=== PATIENT | female | born 1965 | race Caucasian/White ===

== ENCOUNTER 2019-11-30 10:48 | Outpatient (CLI) | payer OTHER, SELFPAY ==
--- NOTE | ~2019-11-30 | XR_ITS ---
EXAMINATION: XR chest 2V 11/30/2019 11:04 INDICATION: Cough PROCEDURE: 2 view chest COMPARISON: 03/31/2016 FINDINGS: The lungs are clear. The cardiomediastinal silhouette is within normal limits. There are no pleural effusions. There is no pneumothorax suspected. IMPRESSION: 1: NO ACUTE CARDIOPULMONARY DISEASE. Reviewed, dictated and finalized at location A.
== END 2019-11-30 10:49 | disposition home or self-care (01) ==
PROVIDERS: PCP Family Medicine; Visit Provider Nurse Practitioner Family
DX: R05 Cough (principal)
CPT/HCPCS: 71046

== ENCOUNTER 2020-03-25 10:53 | Outpatient (NON) | payer OTHER, SELFPAY ==
[2020-03-25 22:34] LABS: SARS-CoV-2 RNA PCR Negative
== END 2020-03-25 10:54 ==
PROVIDERS: PCP Family Medicine; Visit Provider Nurse Practitioner Family
DX: R53.83 Other fatigue (principal); Z20.822 Contact with and (suspected) exposure to COVID-19
CPT/HCPCS: C9803; U0003; U0005

== ENCOUNTER → 2020-06-18 01:30 | Outpatient (CLI) | payer OTHER, SELFPAY ==
[2020-06-18 21:08] LABS: SARS-CoV-2 RNA PCR Negative
== END ==
PROVIDERS: PCP Family Medicine; Visit Provider Internal Medicine Critical Care Medicine
DX: Z01.812 Encounter for preprocedural laboratory examination (principal); Z20.822 Contact with and (suspected) exposure to COVID-19
CPT/HCPCS: C9803; U0003; U0005

== ENCOUNTER 2021-01-21 00:27 | Day surgery (SDC) | payer OTHER, SELFPAY ==
[2021-01-07 14:35] VITALS: BMI 21.6
[2021-01-21 09:32] VITALS: BP 104/59; PULSE 70; RESP 16; TEMP 35.6; O2SAT 100
[2021-01-21] MEDS: LACTATED RINGERS 1,000 ML 150 ML IV CONT (09:36)
--- NOTE | 2021-01-21 10:12 | WPDANESEPPF ---
Anes - Initial Pre Proc Eval Procedure: Operation Date: 01/21/21 11:00 Proposed Procedures p Esophagogastroduodenoscopy & Screening Colonoscopy - Salu Edward MD Date/Time: 01/21/21 10:12 Surgeon: Saul Edward MD Pre Op Diagnosis: nausea, epigastric pain, neoplasm screening Patient Data Age: 55 Gender: F Height: 1.65 m Weight: 58 kg Last Vital Signs Temp 35.6 C L 01/21/21 09:32 Pulse 70 01/21/21 09:32 Resp 16 01/21/21 09:32 BP 104/59 L 01/21/21 09:32 Pulse Ox 100 01/21/21 09:32 Allergies Allergy/AdvReac Type Severity Reaction Status Date / Time codeine Allergy Unknown Pruritic Verified 01/21/21 09:30 rash morphine Allergy Unknown Rash Verified 01/21/21 09:30 oxycodone Allergy Unknown Rash Verified 01/21/21 09:30 TOMATO JUICE/REDNESS Allergy Mild REDNESS Uncoded 01/21/21 09:30 Home Medications Medication Instructions Recorded Confirmed Type albuterol sulfate 90 mcg/actuation 1 inh INHALATION Q4H #8.5 gm 12/09/20 01/07/21 Rx aerosol inhaler azelastine 205.5 mcg (0.15 %) 2 spray INTRANASAL DAILY #30 ml 01/13/21 Rx nasal spray cholecalciferol (vitamin D3) 125 125 mcg PO DAILY #30 tablet 01/13/21 Rx mcg (5,000 unit) tablet dextroamphetamine-amphetamine 10 10 mg PO BID #60 tablet 01/13/21 Rx mg tablet hydroxyzine HCl 25 mg tablet 25 mg PO BID PRN #60 tablet 01/13/21 Rx lamotrigine 200 mg tablet,extended 200 mg PO DAILY #90 tablet 01/13/21 Rx release 24 hr levothyroxine 112 mcg tablet 112 mcg PO DAILY #60 tablet 01/13/21 Rx omeprazole 20 mg capsule,delayed 40 mg PO BID #60 cap 01/13/21 Rx release ondansetron HCl 4 mg tablet 4 mg PO Q6H PRN #30 tablet 01/13/21 Rx sertraline 100 mg tablet 200 mg PO DAILY #180 tablet 01/13/21 Rx sodium,potassium,mag sulfates 17.5 See Rx Instructions PO .COMPLEX 01/13/21 Rx gram-3.13 gram-1.6 gram oral soln #354 ml tapentadol 75 mg tablet 75 mg PO Q6H PRN #120 tablet 01/13/21 Rx Patient hx anesthesia problems: none Family hx anesthesia problems: none Results Review: All pre-operative results and documents have been reviewed as part of the pre-operative evaluation. [facility] Past Medical History Medical History Arthritis of elbow, right Colon cancer screening Depression with anxiety Insomnia Nausea Sleep disturbance Tremor Surgical History Surgical History History of gastric surgery Family History Family History Mother Family history of pancreatic cancer Father Family history of coronary artery disease Family history of diabetes mellitus in first degree relative Other Diabetes mellitus Family history of arthritis Family history of cardiovascular disease Family history of malignant neoplasm Family history of malignant neoplasm of cervix Hypertension Social History Social History Smoking packs per day: 1 Smoking cigarettes per day: 20.0 Smoking status: Current every day smoker Tobacco type: cigarettes Alcohol intake: never Alcohol use details: social Substance use: never Substance use type: does not use Living arrangements: with family Gender identity (if verbalized by the patient): Female Spiritual care concerns: No Anes - Eval Final PreProcedure Day of Procedure 01/21/21 10:12 Patient weight: normal Heart: regular rate and rhythm Lungs: clear to auscultation Airway: Mallampati scale class II Neurological: alert and oriented Last oral intake: >/= 8 hours ASA classification: III Emergent: no Anesthetic plan: proceed Anesthesia type and monitoring: general GIVS and standard monitoring Results Review: All pre-operative results and documents have been reviewed as part of the pre-operative evaluation. Informed Consent: The mary
--- NOTE | 2021-01-21 11:13 | WPDHPUPDATE1 ---
History and Physical Update Update Date/Time: 01/21/21 11:13 History and Physical has been reviewed, including an updated exam of the patient. There are NO changes in the patient's condition. Risks, benefits, and alternatives have been discussed and questions answered. Patient agrees to proceed with procedure.
[2021-01-21 11:51] VITALS: BP 101/60; PULSE 64; RESP 20; O2SAT 100
[2021-01-21 12:01] VITALS: BP 107/59; PULSE 65; RESP 20; O2SAT 100
[2021-01-21 12:11] VITALS: BP 103/59; PULSE 71; RESP 18; O2SAT 100
== END 2021-01-21 12:29 | disposition home or self-care (01) ==
PROVIDERS: PCP Family Medicine; Visit Provider Internal Medicine Gastroenterology
PROC: 0DJ08ZZ Inspection of Upper Intestinal Tract, Via Natural or Artificial Opening Endoscopic (ICD-10-PCS; CPT 43235; principal; 2021-01-21 11:00)
DX: Z12.11 Encounter for screening for malignant neoplasm of colon (principal); D12.8 Benign neoplasm of rectum; D12.2 Benign neoplasm of ascending colon; K63.5 Polyp of colon; K62.1 Rectal polyp; K29.50 Unspecified chronic gastritis without bleeding; K44.9 Diaphragmatic hernia without obstruction or gangrene; K57.10 Diverticulosis of small intestine without perforation or abscess without bleeding; Z98.84 Bariatric surgery status; F41.8 Other specified anxiety disorders; Z79.51 Long term (current) use of inhaled steroids; F17.210 Nicotine dependence, cigarettes, uncomplicated
CPT/HCPCS: 45385; 43239; 88305; J2704; J7120

== ENCOUNTER 2021-04-21 12:22 | Emergency (ER) | payer OTHER, SELFPAY ==
--- NOTE | 2021-04-21 12:23 | ED.URI ---
HPI - URI/Sore Throat General Chief Complaint: Upper Respiratory Infection Stated Complaint: sinus infection Time Seen by Provider: 04/21/21 12:23 Source: patient and RN notes reviewed History of Present Illness HPI Narrative: Patient is a 55-year-old female who presents the urgent care with complaints of a possible sinus infection associated with postnasal drainage, runny nose, congestion, cough. Patient states that started approximately 4 days ago. Patient has been COVID vaccinated and her Covid test was negative. Denies of any fevers, chills, nausea, vomiting, shortness of breath. No other acute complaints. No acute distress noted. Patient read the plan of care. Some parts of this dictation were generated by voice recognition software and may contain typographical and/or grammatical inaccuracies. Related Data Allergies Allergy/AdvReac Type Severity Reaction Status Date / Time codeine Allergy Unknown Pruritic Verified 04/21/21 12:40 rash morphine Allergy Unknown Rash Verified 04/21/21 12:40 oxycodone Allergy Unknown Rash Verified 04/21/21 12:40 TOMATO JUICE/REDNESS Allergy Mild REDNESS Uncoded 04/21/21 12:40 Review of Systems Review of Systems: CONSTITUTIONAL: Denies fever, chills, or sweats. EYES: Denies visual changes, redness, or discharge. ENT: R reports of congestion, rhinorrhea, sinus pressure and postnasal drainage with bilateral otalgia CARDIOVASCULAR: Denies chest pain, palpitations, or edema. RESPIRATORY: Reports a mild cough without dyspnea GASTROINTESTINAL: Denies abdominal pain, nausea, vomiting, or diarrhea. GENITOURINARY: Denies dysuria or hematuria. SKIN: Denies rash or itching. MUSCULOSKELETAL: Denies back pain, joint pain, or myalgia. NEUROLOGIC: Denies headache, numbness, or weakness. All other systems reviewed are negative, except as documented in HPI. [facility] Past Medical History Medical History Arthritis of elbow, right Colon cancer screening Depression with anxiety Insomnia Nausea Sleep disturbance Tremor Surgical History Surgical History History of gastric surgery Family History Family History Mother Family history of pancreatic cancer Father Family history of coronary artery disease Family history of diabetes mellitus in first degree relative Other Diabetes mellitus Family history of arthritis Family history of cardiovascular disease Family history of malignant neoplasm Family history of malignant neoplasm of cervix Hypertension Social History Social History Smoking packs per day: 1 Smoking cigarettes per day: 20.0 Smoking status: Current every day smoker Tobacco type: cigarettes Alcohol intake: never Alcohol use details: social Substance use: never Substance use type: does not use Gender identity (if verbalized by the patient): Female Spiritual care concerns: No Comments At the time of my signature, I reviewed and agree with the nursing past medical, surgical, social, and family history. There is no relevant family history pertinent to the patient complaint. Exam Narrative: GENERAL: This is a well-nourished, well-developed patient, in no apparent distress. HEAD: normocephalic, atraumatic. EYES: PERRL. Sclera clear/white. Vision is grossly intact. EARS: External ears normal, auditory canals clear and without drainage, mild fluid noted behind bilateral TMs without otitis. TMs normal without perforation. Hearing grossly intact. NOSE: External nose normal with no obvious nasal discharge, nares without redness, no rhinorrhea. THROAT: Mucous membranes moist, posterior pharynx clear. Clear postnasal drainage NECK: Neck supple CARDIOVASCULAR: Regular rate and rhythm without murmurs, gallops, or rubs. RESPIRATORY: Clear to auscultation. S
[2021-04-21 12:27] VITALS: BP 115/63; PULSE 76; RESP 16; TEMP 37.2; O2SAT 97
[2021-04-21 12:58] VITALS: BP 156/93; PULSE 96; RESP 16; TEMP 36.6; O2SAT 96
== END 2021-04-21 12:45 | disposition home or self-care (01) ==
PROVIDERS: Emergency Provider Nurse Practitioner Family; PCP Family Medicine
DX: J32.9 Chronic sinusitis, unspecified (principal); F17.210 Nicotine dependence, cigarettes, uncomplicated; M19.021 Primary osteoarthritis, right elbow; F41.9 Anxiety disorder, unspecified; F32.A Depression, unspecified
CPT/HCPCS: 99213; G0463

== ENCOUNTER 2022-08-20 09:41 | Outpatient (CLI) | payer OTHER, SELFPAY | END 2022-08-20 09:42 | disposition home or self-care (01) | LOC: ANHAUDIO 09:41 | PROVIDERS: PCP Family Medicine; Visit Provider Family Medicine | DX: H90.3 Sensorineural hearing loss, bilateral (principal) | CPT/HCPCS: 92557; 92567 ==

== ENCOUNTER → 2022-12-08 13:48 | Outpatient (CLI) | payer OTHER, SELFPAY ==
--- NOTE | ~2022-12-08 | XR_ITS ---
XR_[id number]_CR DATE: 12/08/2022 14:26 INDICATION: Pleural chest pain TECHNIQUE: PA and lateral chest. 3 views of right ribs and 3 views of left ribs. COMPARISON: 11/30/2019 PA and lateral chest FINDINGS: Normal heart size. Aortic arch calcification. No hilar or mediastinal enlargement. Mild bilateral hyperinflation. No pulmonary infiltrate or consolidation, pleural effusion or pulmonar y vascular congestion or pneumothorax. Diffuse osteopenia. Mildly displaced anterolateral right fourth rib fracture appears recent. No other fracture is detecte d. IMPRESSION: Anterolateral mildly displaced right fourth rib fracture Reviewed, dictated and finalized at Location A. Reviewed, dictated and finalized at location B.
== END ==
PROVIDERS: PCP Family Medicine; Visit Provider Nurse Practitioner Family
DX: R07.81 Pleurodynia (principal); S22.31XA Fracture of one rib, right side, initial encounter for closed fracture
CPT/HCPCS: 71111

== ENCOUNTER 2023-02-03 07:00 | Outpatient (RCR) | payer OTHER, SELFPAY | END 2023-02-03 23:59 | disposition home or self-care (01) | LOC: ANHAUDIO 07:00 | PROVIDERS: PCP Family Medicine; Visit Provider Family Medicine | DX: Z46.1 Encounter for fitting and adjustment of hearing aid (principal) | CPT/HCPCS: 99199; V5261; V5264 ==

== ENCOUNTER 2023-03-27 17:15 | Observation (INO) | payer OTHER, SELFPAY ==
[2023-03-27] VITALS (47 sets, daily range): BP systolic 94–120; BP diastolic 54–92; PULSE 65–91; RESP 15–27; TEMP 36.6; O2SAT 95–100
--- NOTE | ~2023-03-27 | XR_ITS ---
EXAMINATION: XR chest 1V portable Exam Date/Time: 03/27/2023 17:44 DOMESTIC TRAVEL CONSULTANT HISTORY: cp Comparison: 11/30/2019. RESULT: Lines, tubes, and devices: None. Lungs and pleura: Clear. Cardiomediastinal silhouette: Stable. Other: No acute osseous or upper abdominal finding. IMPRESSION: No acute cardiopulmonary process. Reviewed, dictated and finalized at location K. STIC TRAVEL CONSULTANT
--- NOTE | ~2023-03-27 | US_ITS ---
EXAMINATION: US carotid duplex BI DATE: 03/28/2023 11:54 INDICATION: Carotid bruit TECHNIQUE: Grayscale, color Doppler, and pulsed Doppler images of the cervical carotid arteries were obtained. The degree of vessel stenosis is placed in one of the following categories: normal, <50%, 5 0-69%, >=70% but less than near-occlusion, near-occlusion, or total occlusion. Note that percent sten osis relative to normal distal artery lumen diameter is indirectly measured from velocity measurement s as described by Noe, et al. Radiology 2003; 229:340-346. Notes: Normal: Peak systolic velocity <125 centimeters/sec and no plaque <50%. Peak systolic velocity <125 ( EDV <40; ICA/CCA PSV ratio <2.0; used these factors only a tandem lesions or low cardiac output or co ntralateral disease) 50-69 %: PSV 125-230 (EDV 40-100; ratio 2-4) >= 70% but less than near occlusion: PSV greater than 230 (EDV > 100; ratio> 4.0) Near Occlusion: PSV that is variable; markedly narrowed lumen Occlusion: Absent flow on color/spectral Doppler and no lumen on fair scale. COMPARISON: None. FINDINGS: RIGHT: The right common carotid artery (CCA) peak systolic velocity (PSV) is 92 cm/s. The right internal car otid artery (ICA) PSV is 92 cm/s. The right ICA end-diastolic velocity (EDV ) is 39 cm/s. The right I CA/CCA PSV ratio is 0.8. The external carotid artery (ECA) PSV is 108 cm/s. There is antegrade flow i n the right vertebral artery. LEFT: The left CCA PSV is 96 cm/s. The left ICA PSV is 83 cm/s. The left ICA EDV is 41 cm/s. The left ICA/C CA PSV ratio is 0.9. The ECA PSV is 60 cm/s. There is antegrade flow in the left vertebral artery. IMPRESSION: 1. Less than 50% stenosis in the right internal carotid artery by sonographic criteria. 2. Less than 50% stenosis in the left internal carotid artery by sonographic criteria. Reviewed, dictated and finalized at location B. ER SETUP OPERATOR IMPRESSION: 1. Less than 50% stenosis in the right internal carotid artery by sonographic ashish smith. 2. Less than 50% stenosis in the left internal carotid artery by sonographic pastor gerard.
--- NOTE | 2023-03-27 17:28 | ECG_ITS ---
Measurements Intervals [place] Rate: 64 P: 52 OR: 147 QRS: 12 QRSD: 82 T: 48 QT: 398 QTc: 413 Interpretive Statements SINUS RHYTHM NORMAL ECG NO PREVIOUS ECG AVAILABLE FOR COMPARISON Electronically Signed On 03-27-2023 21:20:26 ANODE ADJUSTER by Stevenson Kam D.O.
[2023-03-27 17:58] LABS: Basophils Percent Auto 0.6 % (0.2-1.2); Eosinophils Absolute Auto 0.1 K/mm3 (0-0.3); Eosinophils Percent Auto 1.3 % (0-4.4); Hemoglobin 10.7 g/dL (12.0-15.0); Lymphocytes Absolute Auto 1.78 K/mm3 (0.9-3.2); Lymphocytes Percent Auto 32.9 % (18.3-44.2); Mean Corpuscular HGB Conc 31.5 g/dl (32-36); Mean Corpuscular Hemoglobin 30.7 pg (26-34); Mean Corpuscular Volume 97.4 fl (80-100); Mean Platelet Volume 9.2 fl (7.4-10.4); Monocytes Absolute Auto 0.4 K/mm3 (0.1-0.6); Monocytes Percent Auto 8.1 % (2.6-8.5); Neutrophils Absolute Auto 3.1 K/mm3 (1.3-6.7); Neutrophils Percent Auto 57.1 % (45.5-73.1); Platelet Count Result 191 k/mm3 (150-375); Red Blood Count 3.49 M/mm3 (4.2-5.4); Red Cell Distribution Width 14.6 % (11.5-14.5); White Blood Count 5.4 K/mm3 (4.5-10.0)
[2023-03-27 18:02] LABS: Alanine Aminotransferase 10 U/L (6-35); Albumin Level 3.6 g/dL (3.5-5.1); Alkaline Phosphatase 91 U/L (38-126); Anion Gap 4 mmol/L (8-16); Aspartate Amino Transferase 24 U/L (14-36); Bilirubin,Total 0.4 mg/dL (0.2-1.3); Blood Urea Nitrogen 11 mg/dL (7-17); Calcium 8.4 mg/dL (8.4-10.2); Carbon Dioxide 27 mmol/L (22-30); Chloride 107 mmol/L (98-107); Estimated CRCL calculation 61 ml/min; Estimated Glomerular Filt Rate > 60; Glucose 85 mg/dL (65-110); Lipase 83 U/L (23-300); Potassium 3.9 mmol/L (3.4-5.0); Sodium 138 mmol/L (137-145)
[2023-03-27 18:03] LABS: Partial Thromboplastin Time 27.2 SECONDS (22.3-36.8); Prothrombin Time 13.1 Seconds (11.1-14.7)
[2023-03-27 18:42] LABS: Troponin I < 0.012 ng/mL (0.000-0.034)
--- NOTE | 2023-03-27 18:50 | ED.CHESTPAIN ---
HPI - Chest Pain General Chief Complaint: Chest Pain Stated Complaint: chest pressure Time Seen by Provider: 03/27/23 17:30 History of Present Illness HPI narrative: 57-year-old female with a history of COPD, Ongoing tobacco use, hypothyroidism presenting with chest pain. Patient states that she was experiencing epigastric pain associated with nausea earlier this morning. She then developed severe left-sided chest pressure that radiated into her left shoulder. She became diaphoretic and nauseated so her called EMS. EMS gave her nitro which improved the pain though it did leave her with a headache. States that she has a chronic cough please add speech. No leg swelling. No numbness or weakness. Currently complains of mild substernal pressure but no other complaints. Related Data Home Medications Medication Instructions Recorded Confirmed brexpiprazole 0.5 mg tablet 0.5 mg PO HS 12/24/22 03/28/23 (Rexulti) duloxetine 60 mg capsule,delayed 60 mg PO DAILY 12/24/22 03/28/23 release valacyclovir 1 gram tablet 2,000 mg PO Q12H PRN cold sores 03/27/23 03/28/23 albuterol sulfate 90 mcg/actuation 1 inh inhalation Q4H PRN Shortness 03/28/23 03/27/23 aerosol inhaler (ProAir HFA) Of Breath Or Wheezing bupropion HCl 100 mg tablet 100 mg PO BID 03/28/23 03/28/23 ropinirole 0.5 mg tablet 0.5 mg PO QHS PRN .restless leg 03/28/23 03/28/23 symptoms Allergies Allergy/AdvReac Type Severity Reaction Status Date / Time codeine Allergy Unknown Dyspnea / Verified 03/28/23 04:12 SOB morphine Allergy Unknown Dyspnea / Verified 03/28/23 04:12 SOB oxycodone Allergy Unknown Rash Verified 03/28/23 04:12 TOMATO JUICE/REDNESS Allergy Mild REDNESS Uncoded 03/28/23 04:12 Review of Systems Review of Systems: All systems reviewed & are unremarkable except as noted in HPI and below PMFSH Past Medical History Medical History (Updated 03/28/23 @ 21:57 by Radha Paulson MD) Arthralgia Arthritis of elbow, right Cerebral atrophy Colon cancer screening Colonoscopy planned Depression with anxiety Extremity numbness GERD (gastroesophageal reflux disease) Hearing loss Herpes labialis Insomnia Memory loss Nausea Non Hodgkin's lymphoma Removal of subcu nodule posterior right shoulder with radiation and chemotherapy treatment. She underwent autologous stem cell transplant as well 2002. Poor concentration PTSD (post-traumatic stress disorder) Restless legs syndrome Sleep disturbance Tremor Surgical History Surgical History (Updated 03/28/23 @ 14:23 by Jared Silva MD) History of bilateral tubal ligation History of gastric surgery Family History Family History Mother Family history of pancreatic cancer Father DVT (deep venous thrombosis) Dementia Family history of diabetes mellitus in first degree relative Family history of coronary artery disease Hypertension Father Family history of cardiovascular disease Diabetes mellitus Heart disease Hyperlipidemia Parkinson disease Mother Pancreatic cancer Sibling Dementia Breast cancer Sibling Ovarian cancer Sibling Congestive heart failure Breast cancer Sibling Congestive heart failure Sibling Diabetes mellitus Social History Social History (Updated 03/28/23 @ 14:24 by Jared Silva MD) Social History: Lives at home with her and son. No alcohol or drug use. Smokes a pack a day for past 40 years. Full code. Nominates her to be the individual would make medical decisions for her if she is unable Smoking packs per day: 0.75 Smoking cigarettes per day: 15.0 Years smoked: 43 Smoking pack-years: 32.25 Smoking status: Current every day smoker Tobacco type: cigarettes Second hand tobacco smoke exposure: No Alcohol intake: former Alcohol use details: social Substance use: former Substance use type: francheska
--- NOTE | 2023-03-27 20:14 | ECG_ITS ---
Measurements Intervals [place] Rate: 64 P: 66 CO: 153 QRS: 38 QRSD: 81 T: 64 QT: 403 QTc: 417 Interpretive Statements SINUS RHYTHM BASELINE ARTIFACT- I, III, AVL NORMAL ECG COMPARED TO ECG 03/27/2023 17:17:21 NO SIGNIFICANT CHANGES Electronically Signed On 03-27-2023 21:22:30 VALIDATION ENGINEER by Stevenson Kam D.O.
[2023-03-27] MEDS: NICOTINE (*PBKC) 21 MG PATCH 1 PATCH TRANSDERM (22:17)
[2023-03-27 23:29] LABS: Influenza A QL RT-PCR Negative (Negative); Influenza B QL RT-PCR Negative (Negative); RSV RNA, RT-PCR Negative (Negative); SARS-CoV-2 RNA PCR Negative (Negative)
[2023-03-28] VITALS (27 sets, daily range): BP systolic 100–110; BP diastolic 49–70; PULSE 63–86; RESP 14–21; TEMP 36.3–36.9; O2SAT 96–100; BMI 19.9
--- NOTE | 2023-03-28 | EST_ITS ---
Patient Info Name: Nelda Sosa Age: 57 years : 1965 Gender: Female Ht: 65 in Wt: 125 lbs BSA: 1.61 m2 HR: 67 bpm BP: 87 / 52 mmHg Heart Rhythm: Sinus Rhythm Technical Quality: Good Exam Date: 03/28/2023 11:07 AM Exam Location: Echo Lab Patient Status: Inpatient Admit Date: 03/27/2023 Staff Ordering Physician: Jared Silva MD Flower Grower: Clari Keller RDCS Attending Provider: DR. DÍAZ Exercise Technologist: Clari Keller RDCS Exercise Physician: Stevenson Díaz DO Exam Type: CA stress echo Study Info Indications R07.9 - Chest pain, unspecified Treadmill exercise stress echocardiogram is performed. Summary 1. 1. Negative [place] exercise stress test for ischemic ST changes by ECG criteria. 2. 2. Good functional capacity, achieving 9.5 METs of workload. 3. 3. Appropriate HR response to exercise. 4. 4. Appropriate HR recovery at 1 minute post exercise. 5. 5. Negative stress echocardiogram for ischemia by wall motion analysis. 6. 6. Patient informed of the above results. Stress Echo Findings Left Ventricle Appropriate increase in LV endocardial thickening with systole. Appropriate augmentation of contractility with systole. No wall motion abnormality. Left Ventricle Normal LV systolic function, no wall motion abnormality. Protocol: [place] Stress ECG Details Stage: REST Duration (min): 1 min : 8 sec Speed (mph): 0.0 Grade (%): 0 HR (bpm): 70 SBP (mmHg): 87 DBP (mmHg): 52 METS: --- Stage: REST Duration (min): 11 min : 34 sec Speed (mph): 0.0 Grade (%): 0 HR (bpm): 76 SBP (mmHg): 87 DBP (mmHg): 52 METS: --- Stage: STAGE 1 Duration (min): 1 min : 0 sec Speed (mph): 1.7 Grade (%): 10 HR (bpm): 103 SBP (mmHg): 87 DBP (mmHg): 52 METS: --- Stage: STAGE 1 Duration (min): 2 min : 0 sec Speed (mph): 1.7 Grade (%): 10 HR (bpm): 108 SBP (mmHg): 87 DBP (mmHg): 52 METS: --- Stage: STAGE 1 Duration (min): 3 min : 0 sec Speed (mph): 1.7 Grade (%): 10 HR (bpm): 103 SBP (mmHg): 87 DBP (mmHg): 52 METS: --- Stage: STAGE 2 Duration (min): 1 min : 0 sec Speed (mph): 2.5 Grade (%): 12 HR (bpm): 116 SBP (mmHg): 76 DBP (mmHg): 49 METS: --- Stage: STAGE 2 Duration (min): 2 min : 0 sec Speed (mph): 2.5 Grade (%): 12 HR (bpm): 122 SBP (mmHg): 76 DBP (mmHg): 49 METS: --- Stage: STAGE 2 Duration (min): 3 min : 0 sec Speed (mph): 2.5 Grade (%): 12 HR (bpm): 127 SBP (mmHg): 90 DBP (mmHg): 41 METS: --- Stage: STAGE 3 Duration (min): 1 min : 0 sec Speed (mph): 3.4 Grade (%): 14 HR (bpm): 136 SBP (mmHg): 102 DBP (mmHg): 46 METS: --- Stage: STAGE 3 Duration (min): 1 min : 23 sec Speed (mph): 0.0 Grade (%): 0 HR (bpm): 139 SBP (mmHg): 102 DBP (mmHg): 46 METS: --- Stage: RECOVERY Duration (min): 0 min : 36 sec Speed (mph): 0.0 Grade (%): 0 HR (bpm): 122 SBP (mmHg): 102 DBP (mmHg): 46 METS: ---
[2023-03-28 01:29] LABS: Troponin I < 0.012 ng/mL (0.000-0.034)
--- NOTE | 2023-03-28 03:40 | ADMGEN ---
This patient, Nelda Sosa, was admitted to IMU Room 206-02 on 03/28/23 at 0307. Patient/family oriented to hospital policies and general routines including ID bracelet, bed and alarms, visiting hours, pain management, procedures, bathroom and other care routines, personal items, smoking policy, room service/diet, and visiting hours. Information on how to activate the Rapid Response Team has been discussed. Patient/Family are encouraged to report perceived risks to care and to ask questions if they do not understand what they are told or what they should do.
[2023-03-28] MEDS: TAPENTADOL HCL 75 MG PO ×2 (06:32→13:32)
[2023-03-28] MEDS: LEVOTHYROXINE SODIUM 112 MCG TABLET PO (06:32)
[2023-03-28] MEDS: SERTRALINE HCL 50 MG TABLET 200 MG PO (09:00)
[2023-03-28] MEDS: NICOTINE (*PBKC) 21 MG PATCH 1 PATCH TRANSDERM (09:00)
[2023-03-28] MEDS: PANTOPRAZOLE 40 MG TABLET PO (09:00)
[2023-03-28] MEDS: DULoxetine HCL 60 MG CAPSULE.DR PO (09:00)
[2023-03-28] MEDS: ASPIRIN 81 MG CHEWABLE TABLET PO (09:05)
[2023-03-28 09:19] LABS: Appearance Urine Clear (Clear); Bilirubin Urine Negative (Negative); Blood Urine Negative (Negative); Color Urine Yellow (Yellow); Glucose Urine UA Negative (Negative); Ketones Urine Negative (Negative); Leukocyte Esterase Ur Negative LEU/UL (Negative); Nitrate Urine Negative (Negative); Protein Urine Negative (Negative); Specific Grav Ur 1.017 (1.001-1.035)
[2023-03-28 09:25] LABS: Add Urine Microscopic? NO
--- NOTE | 2023-03-28 14:16 | PM.SD2 ---
Same Day Admit/Disch: HPI History of Present Illness Chief complaint: Chest Pain Narrative: Nelda Sosa is a 57 year old female with COPD here for chest pain. About 1-2 hours prior to admission, patient developed acute onset of lower substernal chest pain that she describes as ?tight? that radiated to the flanks in a bandlike distribution. The pain was not pleuritic or palpable. She had nausea and diaphoresis but no shortness of breath. No trauma. The symptoms occurred at rest. Symptoms lasted a few hours. It occurred while she was getting up from a chair. EMS was called and the patient was given a nitroglycerin with resolution of the pain. She does have GERD and is on omeprazole for this. No fevers but felt chilled. She does have a chronic cough with postnasal drainage and chronic sinusitis symptoms. No history of hypertension, hyperlipidemia or diabetes. She does smoke. She does have a history of anemia and is being evaluated for this. Symptom onset was about 4 hours after eating. Review of systems was negative except she did complain of some mild dysuria today. She was brought to the emergency room for evaluation. [facility] Past Medical History Medical History (Updated 03/28/23 @ 14:23 by Jared Silva MD) Arthralgia Arthritis of elbow, right Cerebral atrophy Colon cancer screening Colonoscopy planned Depression with anxiety Extremity numbness GERD (gastroesophageal reflux disease) Hearing loss Herpes labialis Insomnia Memory loss Nausea Non Hodgkin's lymphoma Removal of subcu nodule posterior right shoulder with radiation and chemotherapy treatment. She underwent autologous stem cell transplant as well 2002. Poor concentration PTSD (post-traumatic stress disorder) Restless legs syndrome Sleep disturbance Tremor Surgical History Surgical History (Updated 03/28/23 @ 14:23 by Jared Silva MD) History of bilateral tubal ligation History of gastric surgery Family History Family History Mother Family history of pancreatic cancer Father DVT (deep venous thrombosis) Dementia Family history of diabetes mellitus in first degree relative Family history of coronary artery disease Hypertension Father Family history of cardiovascular disease Diabetes mellitus Heart disease Hyperlipidemia Parkinson disease Mother Pancreatic cancer Sibling Dementia Breast cancer Sibling Ovarian cancer Sibling Congestive heart failure Breast cancer Sibling Congestive heart failure Sibling Diabetes mellitus Social History Social History (Updated 03/28/23 @ 14:24 by Jared Silva MD) Social History: Lives at home with her and son. No alcohol or drug use. Smokes a pack a day for past 40 years. Full code. Nominates her to be the individual would make medical decisions for her if she is unable Smoking packs per day: 0.75 Smoking cigarettes per day: 15.0 Years smoked: 43 Smoking pack-years: 32.25 Smoking status: Current every day smoker Tobacco type: cigarettes Second hand tobacco smoke exposure: No Alcohol intake: former Alcohol use details: social Substance use: former Substance use type: marijuana Other substance usage details: as a young child Do You Feel Safe in your Home?: Yes Lack of Transportation: No Lack of Food: Never True Current Housing: I Have Housing Concerned About Future Housing: No Difficulty Paying Gas/Electric Bills: No Difficulty Paying for Meds: No Currently Unemployed: No Education: High School Diploma/GED Difficulty w/ Childcare or Family Care: No Living arrangements: with family Occupation/Education: occupation 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
== END 2023-03-28 15:20 | disposition home or self-care (01) ==
LOC: ANHED 18:13 → ANHIMU 03-28 02:58
PROVIDERS: Emergency Medicine; Admitting Provider Internal Medicine; Emergency Provider Emergency Medicine; PCP Family Medicine; Visit Provider Internal Medicine
DX: R07.9 Chest pain, unspecified (principal); J44.9 Chronic obstructive pulmonary disease, unspecified; E03.9 Hypothyroidism, unspecified; R05.3 Chronic cough; F41.8 Other specified anxiety disorders; K21.9 Gastro-esophageal reflux disease without esophagitis; C85.90 Non-Hodgkin lymphoma, unspecified, unspecified site; Z94.84 Stem cells transplant status; R09.89 Other specified symptoms and signs involving the circulatory and respiratory systems; G25.81 Restless legs syndrome; F43.10 Post-traumatic stress disorder, unspecified; B00.1 Herpesviral vesicular dermatitis; Z98.84 Bariatric surgery status; Z20.822 Contact with and (suspected) exposure to COVID-19; F17.210 Nicotine dependence, cigarettes, uncomplicated; Z92.3 Personal history of irradiation; Z79.51 Long term (current) use of inhaled steroids; Z79.899 Other long term (current) drug therapy; Z80.8 Family history of malignant neoplasm of other organs or systems; Z92.21 Personal history of antineoplastic chemotherapy
CPT/HCPCS: 36415; 71045; 80053; 81001; 81003; 83690; 84484; 85025; 85610; 85730; 87637; 93005; 93351; 93880; 99285; A9270; G0378

== ENCOUNTER 2023-08-12 13:03 | Outpatient (CLI) | payer OTHER, SELFPAY ==
--- NOTE | ~2023-08-12 | CT_ITS ---
Non-contrast CT scan of the Abdomen and Pelvis Clinical indication: Proteinuria Technique: 2.5 mm axial scans were obtained through the abdomen and pelvis without intravenous or or al contrast. Dose reduction technique was used on this scan by utilizing automated exposure control a nd iterative reconstruction technique. The dose-length product (DLP) was 284.70 mGy-cm. Findings: Images through the lung bases reveal minimal pericardial fluid. Small hiatal hernia presen t. There is no evidence of renal or ureteral calculi. The kidneys and the ureters are nondilated. The liver, spleen, pancreas, gallbladder, and adrenals appear normal. There is no aortic aneurysm. There is no evidence of bowel obstruction. Images through the pelvis were performed. There is no evidence of ascites or lymphadenopathy. Urinary bladder unremarkable. No pelvic mass evident. Impression: No significant abnormality seen. Reviewed, dictated and finalized at [facility]. Impression: No significant abnormality seen.
== END 2023-08-12 13:04 ==
LOC: MICIMG 13:03
PROVIDERS: PCP Family Medicine; Visit Provider Nurse Practitioner Family
DX: R80.9 Proteinuria, unspecified (principal); R82.2 Biliuria; M54.50 Low back pain, unspecified
CPT/HCPCS: 74176

== ENCOUNTER 2024-03-08 12:29 | Outpatient (CLI) | payer OTHER, SELFPAY ==
[2024-03-08 12:51] LABS: Immature Reticulocyte Fraction 6.9 % (3.0-15.9); Reticulocyte Hemoglobin Conten 33.9 pg (28.2-36.6); Reticulocyte Percent 0.85 % (0.7-4.3); Reticulocytes Absolute 0.04 10^6/uL (0.02-0.10)
[2024-03-08 16:20] LABS: Iron 110 ug/dL (37-170)
[2024-03-08 16:24] LABS: Alanine Aminotransferase 13 U/L (6-35); Albumin Level 4.5 g/dL (3.5-5.1); Alkaline Phosphatase 113 U/L (38-126); Anion Gap 2 mmol/L (4-12); Aspartate Amino Transferase 26 U/L (14-36); Bilirubin,Total 0.5 mg/dL (0.2-1.3); Blood Urea Nitrogen 14 mg/dL (7-17); Calcium 9.5 mg/dL (8.4-10.2); Carbon Dioxide 27 mmol/L (22-30); Chloride 106 mmol/L (98-107); Estimated Glomerular Filt Rate > 60; Glucose 84 mg/dL (65-110); Potassium 4.3 mmol/L (3.4-5.0); Sodium 135 mmol/L (137-145)
[2024-03-08 16:33] LABS: Percent Iron Saturation 30 % (20-50); TOTAL IRON BINDING CAPACITY 361 ug/dL (261-462)
[2024-03-08 17:30] LABS: Folic Acid 11.5 ng/mL (2.76->20)
== END 2024-03-08 12:30 | disposition home or self-care (01) ==
PROVIDERS: PCP Family Medicine; Visit Provider Internal Medicine Medical Oncology
DX: D50.9 Iron deficiency anemia, unspecified (principal)
CPT/HCPCS: 36415; 80053; 82607; 82728; 82746; 83540; 83550; 85046

== ENCOUNTER 2024-07-05 01:04 | Day surgery (SDC) | payer OTHER, MEDICAID, SELFPAY ==
[2024-06-26 10:44] VITALS: BMI 22.0
--- OUTSIDE RECORDS SUMMARY | 2024-07-05 01:11 | XMS_ITS | Clinical Summary ---
Author Organization [facility] Daren bender Gita Address [address] [place] [address] Care Team Providers Care Lockstitch Back Maker Name Role Phone Unavailable Primary Care Provider Unavailabl e Allergies Active Allergy Reactions Criticality Noted Date Comments Codeine Shortness of Breath/Wheezing,Itching,Nausea and Vomiting High 03/08/2024 Medications alendronate (FOSAMAX) 70 mg tablet Take 1 Tablet by mouth every 7 days. 02/09/2024 Active buPROPion (WELLBUTRIN) 100 mg tablet Take 100 mg by mouth 2 times daily. 02/09/2024 Active cholecalciferol 1,250 mcg (50,000 unit) Capsule Take 1 Capsule by mouth every 7 days. 12/22/2023 Active cholecalciferol , Vitamin D3, 50 mcg (2,000 unit) Tablet Take 1 Tablet by mouth daily. 02/21/2024 Active lamoTRIgine (LaMICtal XR) 200 mg Extended Release 24 hour tablet Take 1 Tablet by mouth daily. 02/20/2024 Active morphine (MS IR) 15 mg tablet Take 15 mg by mouth every 4 hours as needed for Pain. 12/27/2023 Active omeprazole (PriLOSEC) 40 mg Capsule, Delayed Release(E.C.) Take 40 mg by mouth 2 times daily. Active CREW CALLER Thyroid 120 mg tablet Take 1 Tablet by mouth daily. 12/26/2023 Active tiZANidine (ZANAFLEX) 2 mg Tablet Take 2 mg by mouth 3 times daily as needed. for muscle spasms 12/05/2023 Active sertraline (ZOLOFT) 100 mg tablet Take 100 mg by mouth daily. Active dextroamphetami ne-amphetamine (ADDERALL) 10 mg tablet Take 10 mg by mouth 2 times daily. Active Active Problems No known active problems Encounters Date Type Department Care Team Description 05/23/2024 External Device Data STL ABSTRACTION Provider, Abstract 05/15/2024 External Device Data STL ABSTRACTION Provider, Abstract 05/15/2024 External Device Data STL ABSTRACTION Provider, Abstract 05/12/2024 External Device Data STL ABSTRACTION Provider, Abstract 05/11/2024 External Device Data STL ABSTRACTION Provider, Abstract 05/09/2024 External Device Data STL ABSTRACTION Provider, Abstract 04/25/2024 External Device Data STL ABSTRACTION Provider, Abstract from Last 3 Months Family History Medical History Relation Name Comments No Known Problems Brother 1 No Known Problems Brother 2 No Known Problems Child 1 Cancer - Other Child 2 Diabetes Child 2 Diabetes Child 3 No Known Problems Child 4 Cancer - Other Father Diabetes Father Heart Disease Father Cancer - Other Mother Diabetes Sister 1 Heart Disease Sister 2 Cancer - Other Sister 3 Relation Name Status Comments Brother 1 Alive Brother 2 Alive Child 1 Alive Child 2 Alive Child 3 Alive Child 4 Alive Father Mother Sister 1 Alive Sister 2 Alive Sister 3 Alive Social History Tobacco Use Types Packs/Day Years Used Date Smoking Tobacco: Every Day Cigarettes 1 47.3 Started: 1977 Smokeless Tobacco: Never Tobacco Cessation:Ready to Q uit: Not Asked; Counseling Given: Not Answered Alcohol Use Standard Drinks/Week Comments Never 0 (1 standard drink = 0.6 oz pur e alcohol) Comments Unknown Sex and Gender Information Value Date Recorded Sex Assigned at Not on file Legal Sex Female 11:08 AM STONE HAND Gender Identity Not on file Sexual Orientation Not on file Last Filed Vital Signs Vital Sign Reading Time Taken Comments Blood Pressure 115/61 03/08/2024 11:33 AM STONE HAND Pulse 88 03/08/2024 11:33 AM STONE HAND Temperature 36.7 C (98 F) 03/08/2024 11:33 AM STONE HAND Respiratory Rate 16 03/08/2024 11:33 AM STONE HAND Oxygen Saturation 98% 03/08/2024 11:33 AM STONE HAND Inhaled Oxygen Concentration - - Weight 54.2 kg (119 lb 6.4 oz) 03/08/2024 11:33 AM STONE HAND Height 165.1 cm (5' 5 ) 03/08/2024 11:33 AM STONE HAND Body Mass Index 19.87 03/08/2024 11:33 AM STONE HAND Plan of Treatment Health Maintenance Due Date Last Done Comments DTAP/TDAP/TD VACCINES (1 - Tdap) 1984 HEPATITIS B VACCINES (1 of 3 - 19+ 3-dose series) 06/1984 HPV/Cotest (21-29) 1986 CERVICAL CANCER SCREENING 11/09/1995 HPV/Cotest (30-65) 11/09/1995 PAP SMEAR 11/09/1995 BREAST CANCER SCREENING 2005 COLORECTAL SCREENING 2010 Colorectal Cancer Screening 2010 FIT-DNA Q 3 years 2010 FIT/FOBT Q 1 year 2010 Flex Sig/CT Colonography Q 5 years 2010 Lung Cancer Screening 11/09/2015 ZOSTER VACCINE (1 of 2) 11/09/2015 INFLUENZA VACCINE (#1) 2023 Insurance [facility] [id number] [facility] [place] [address]
--- OUTSIDE RECORDS SUMMARY | 2024-07-05 01:12 | XMS_ITS | Referral Summary ---
Author Organization [facility] at the [facility] Address [address] [place], [place] [id number] Care Team Providers Care Value Advisor Name Role Phone Andrew Michael MD Primary Care Provider + [phone] Allergies Active Allergy Reactions Criticality Noted Date Comments Codeine Medications alendronate (FOSAMAX) 70 mg tablet Take 1 tablet (70 mg total) by mouth once a week 02/09/2024 Active ALPRAZolam (XANAX) 0.5 mg tablet Take 1 tablet (0.5 mg total) by mouth 3 (three) times a day as needed Active cholecalciferol (VITAMIN D-3) 50,000 unit capsule Take 1 capsule (50,000 Units total) by mouth once a week 12/22/2023 Active dextroamphetami ne-amphetamine (ADDERALL) 10 mg tablet Take 1 tablet (10 mg total) by mouth 2 (two) times a day Active lamoTRIgine XR (LaMICtal XR) 200 mg tablet extended release 24hr Take 1 tablet (200 mg total) by mouth daily Active Nucynta 75 mg tablet TAKE 1 TABLET BY MOUTH EVERY 6 HOURS NEEDED FOR PAIN OR CHRONIC LUMBAR PAIN Active sertraline (ZOLOFT) 100 mg tablet Take 1 tablet (100 mg total) by mouth daily Active rosuvastatin (CRESTOR) 20 mg tablet Take 1 tablet (20 mg total) by mouth daily Active omeprazole (PriLOSEC) 40 mg capsule Take 1 capsule (40 mg total) by mouth 2 (two) times a day Active thyroid (BUSINESS AFFAIRS MANAGER Thyroid) 120 mg tablet Take 1 tablet (120 mg total) by mouth daily 12/26/2023 Active venlafaxine XR (EFFEXOR-XR) 150 mg 24 hr capsule Take 2 capsules (300 mg total) by mouth daily Active Active Problems Problem Noted Date Diagnosed Date 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 03/09 Vitamin D deficiency 04/05/2024 S/P gastric sleeve procedure 04/05/2024 Sleep disturbance 04/05/2024 Fracture of base of fifth metatarsal bone 2014 Overview (06/10/2016): Fracture of base of fifth metatarsal bone of left foot, with delayed healing, subsequent encounter Treatment of healed fracture follow-up examinati on 12/25/2014 Overview (06/10/2016): Fracture follow-up Social History Tobacco Use Types Packs/Day Years Used Date Smoking Tobacco: Every Day Cigarettes Tobacco Cessation:Ready to Q uit: Not Asked; Counseling Given: Not Answered Alcohol Use Standard Drinks/Week Comments Yes 0 (1 standard drink = 0.6 oz pur e alcohol) Personal Safety Answer Date Recorded Have you ever been in or are you currently in a harmful physical or emotional relationship or is someone making you feel afraid or unsafe? Denies 12/26/2023 Comments Unknown Sex and Gender Information Value Date Recorded Sex Assigned at Not on file Legal Sex Female 7:36 PM INTERNAL COMBUSTION ENGINE SUBASSEMBLER Gender Identity Not on file Sexual Orientation Not on file Last Filed Vital Signs Vital Sign Reading Time Taken Comments Blood Pressure 100/90 04/05/2024 2:17 PM INTERNAL COMBUSTION ENGINE SUBASSEMBLER Pulse 91 04/05/2024 2:17 PM INTERNAL COMBUSTION ENGINE SUBASSEMBLER Temperature 36.7 C (98 F) 12/26/2023 12:15 PM CDT Respiratory Rate 16 04/05/2024 2:17 PM INTERNAL COMBUSTION ENGINE SUBASSEMBLER Oxygen Saturation 100% 12/26/2023 9:28 PM CDT Inhaled Oxygen Concentration - - Weight 59.9 kg (132 lb) 04/05/2024 2:17 PM INTERNAL COMBUSTION ENGINE SUBASSEMBLER Height 165.1 cm (5' 5 ) 04/05/2024 2:17 PM INTERNAL COMBUSTION ENGINE SUBASSEMBLER Body Mass Index 21.97 04/05/2024 2:17 PM INTERNAL COMBUSTION ENGINE SUBASSEMBLER Plan of Treatment Not on file Insurance [facility] IDPA Care Teams Value Advisor Relationship Specialty Start Date End Date Andrew Michael MD PCP - General 12/04/14
--- OUTSIDE RECORDS SUMMARY | 2024-07-05 01:12 | XMS_ITS | Clinical Summary ---
Author Organization [facility] Address [address] [place] [address] Care Team Providers Care Value Advisor Name Role Phone Unavailable Primary Care Provider Unavailabl e Source Comments [facility],non-owned Affiliates and Associated Physician Practices is amultiple site organization consisting of ambulatory clinics and hospital sitesin [place], [place], [place] and [place]. This disclosure is being madepursuant to the Care Everywhere program and may not contain all information available regarding this patient. Last updated 17.[facility] Allergies Active Allergy Reactions Criticality Noted Date Comments Codeine Other 05/02/2017 SOB, vomiting, shakey, vision is limited, Medications * Be aware that medications may not be up to date on this document. Alwaysverify current medications with the patient. tapentadol (NUCYNTA) 75 MG tablet Take 1 tablet by mouth Active VITAMIN D, CHOLECALCIFEROL , PO Take 50,000 Units by mouth every 7 days Active amphetamine-dex troamphetamine (ADDERALL) 10 MG tablet Take 10 mg by mouth every morning Active sertraline (ZOLOFT) 100 MG tablet Take 100 mg by mouth once daily Active lamoTRIgine (LAMICTAL) 100 MG tablet Take 100 mg by mouth 2 times daily Active levothyroxine (SYNTHROID) 112 MCG tablet Take 112 mcg by mouth once daily Active omeprazole (PRILOSEC) 40 MG capsule Take 40 mg by mouth once daily Active Social History Tobacco Use Types Packs/Day Years Used Date Smoking Tobacco: Every Day Smokeless Tobacco: Never Comments Unknown Sex and Gender Information Value Date Recorded Sex Assigned at Not on file Legal Sex Female 4:48 PM CDT Gender Identity Not on file Sexual Orientation Not on file Last Filed Vital Signs Vital Sign Reading Time Taken Comments Blood Pressure 104/66 05/11/2019 5:07 PM TELESALES TEAM LEADER Pulse 70 05/11/2019 5:07 PM TELESALES TEAM LEADER Temperature 36.8 C (98.2 F) 05/11/2019 5:07 PM TELESALES TEAM LEADER Respiratory Rate 16 05/11/2019 5:07 PM TELESALES TEAM LEADER Oxygen Saturation 98% 05/11/2019 5:07 PM TELESALES TEAM LEADER Inhaled Oxygen Concentration - - Weight 51.3 kg (113 lb) 05/11/2019 5:07 PM TELESALES TEAM LEADER Height 165.1 cm (5' 5 ) 05/11/2019 5:07 PM TELESALES TEAM LEADER Body Mass Index 18.8 05/11/2019 5:07 PM TELESALES TEAM LEADER Plan of Treatment Health Maintenance Due Date Last Done Comments COLOGUARD (AGES 45-75) - COL ON CA SCREENING 1965 COLON MONITORING 1965 COLONOSCOPY - COLON CA SCREENING 1965 CT COLONOGRAPHY - COLON CA SCREENING 1965 Colorectal Cancer Screening 1965 FIT - COLON CA SCREENING 1965 FLEX SIG - COLON CA SCREENING 1965 LIPID TESTING 1965 MAMMOGRAM 1965 HIV SCREENING 1980 HEPATITIS C SCREENING 11/04/1983 DTAP/TDAP/TD VACCINES (1 - Tdap) 1984 HEPATITIS B VACCINE (1 of 3 - 19+ 3-dose series) 1984 PNEUMOCOCCAL VACCINE 50+ (1 of 2 - PCV) 1984 ZOSTER VACCINE (1 of 2) 11/09/2015 COVID-19 VACCINE (1 - 2023-2 5 season) 2023 DEPRESSION SCREENING 03/07/2024 INFLUENZA VACCINE (Season Ended) 2024 HIB VACCINE Aged Out No longer eligi ble based on patient's age to complete this topic HPV VACCINE Aged Out No longer eligi ble based on patient's age to complete this topic MENINGOCOCCAL (Group B) VACC INE SHARED DECISION-MAKING Aged Out No longer eligibl e based on patient's age to complete this topic MENINGOCOCCAL GROUPS A/C/Y/W VACCINE Aged Out No longer eligible b ased on patient's age to complete this topic Insurance AETNA AETNA
--- OUTSIDE RECORDS SUMMARY | 2024-07-05 01:12 | XMS_ITS | Clinical Summary ---
Author Organization [facility] at the [facility] Address [address] [place] [address] Care Team Providers Care Field Tax Auditor Name Role Phone Andrew Michael MD Primary Care Provider + [phone] Allergies Active Allergy Reactions Criticality Noted Date [...] 2 (two) times a day Active thyroid (BALL ROLLING MACHINE OPERATOR Thyroid) 120 mg tablet Take 1 tablet [...] examinati on 12/25/2014 Overview (06/10/2016): Fracture follow-up Surgical History Surgery Date Site/Laterality Comments TUBAL LIGATION tubal ligation SLEEVE GASTROPLASTY gastric sleeve Medical History Medical History Date Comments Depression Depression Disorder of thyroid Thyroid dise ase Hx Other Medical back pain Hx Other Medical cancer-[place] ty large cell T-cell lymphoma Family History Medical History Relation Name Comments Alcohol abuse Other 1 Alcoholism; Arthritis Other 1 Family history of arthritis; Blood Clot Other 1 Family history of blood clots; Diabetes Other 1 Family history of diabetes; Gout Other 1 Gout; Heart disease Other 1 Family history of heart problems; Hypertension Other 1 Hypertension; Kidney disease Other 1 Family histor y of kidney problems; Lung disease Other 1 Family history of lung problems; Mental illness Other 1 Mental illnes s; Other Other 1 Family history of diabets; Stroke Other 1 Stroke; Other Other 2 Family history of bleeding problems; Relation Name Status Comments Other 1 Other 2 Social History Tobacco Use Types Packs/Day Years [...] on file Legal Sex Female 7:36 PM TABLE ASSEMBLER METAL Gender Identity Not on file Sexual Orientation Not on file Obstetrics History Last Filed Vital Signs Vital Sign Reading Time Taken Comments Blood Pressure 100/90 04/05/2024 2:17 PM TABLE ASSEMBLER METAL Pulse 91 04/05/2024 2:17 PM TABLE ASSEMBLER METAL Temperature 36.7 C (98 F) 12/26/2023 12:15 PM CDT Respiratory Rate 16 04/05/2024 2:17 PM TABLE ASSEMBLER METAL Oxygen Saturation 100% 12/26/2023 9:28 PM CDT Inhaled Oxygen Concentration - - Weight 59.9 kg (132 lb) 04/05/2024 2:17 PM TABLE ASSEMBLER METAL Height 165.1 cm (5' 5 ) 04/05/2024 2:17 PM TABLE ASSEMBLER METAL Body Mass Index 21.97 04/05/2024 2:17 PM TABLE ASSEMBLER METAL Plan of Treatment Health Maintenance Due Date Last Done Comments Breast Cancer Screening-Mammogram 1965 Cervical Cancer Screening 1965 Colon Cancer Screening-Colonoscopy 1965 Depression Screening 1965 Hepatitis C Screening 1965 DTaP/Tdap/Td Vaccine (1 - Tdap) 1976 Hepatitis B Screening 11/09/1983 Regular Well Visit/Exam 18-64 11/09/1983 Pneumococcal vaccine <65 (1 of 2 - PCV) 1984 Zoster Vaccine (1 of 2) 1984 Influenza Vaccine (#1) 2023 Insurance [facility] [place] [address] Care Teams Field Tax Auditor Relationship Specialty Start Date End Date Andrew Michael MD PCP - General 12/04/14
--- OUTSIDE RECORDS SUMMARY | 2024-07-05 01:12 | XMS_ITS | Clinical Summary ---
Author Organization [facility] Address [address] [place] [address] Phone Care Team Providers Care Library Clerical Assistant Name Role Phone Andrew Michael MD Primary Care Provider [phone] Allergies Active Allergy Reactions Criticality Noted Date Comments Codeine Other (see Comments) 05/02/2017 SOB, vomiting, shakey, vision is limited, Medications Tapentadol HCl (NUCYNTA) 75 MG Tablet Take 1 Tab by mouth 5 times daily as needed. Active ALPRAZolam (XANAX) 0.5 MG Tablet Take 0.5 mg by mouth 3 times daily as needed. Active levothyroxine (SYNTHROID) 112 MCG Tablet Take 112 mcg by mouth daily. Active omeprazole (PRILOSEC) 40 MG CAPSULE DELAYED RELEASE Take 40 mg by mouth daily. Active rosuvastatin (CRESTOR) 20 MG Tablet Take 20 mg by mouth daily. Active venlafaxine (EFFEXOR XR) 150 MG CAPSULE SR 24 HR Take 300 mg by mouth daily. Active Cholecalciferol (VITAMIN D PO) Take 50,000 Units by mouth once a week. Active Family History Medical History Relation Name Comments Alzheimer's Disease Father Heart Attack Father Parkinsonism Father Cancer Mother pancreatic Relation Name Status Comments Father Mother Social History Tobacco Use Types Packs/Day Years Used Date Smoking Tobacco: Former Cigarettes Q uit: 03/07/2017 Smokeless Tobacco: Never Alcohol Use Standard Drinks/Week Comments No 0 (1 standard drink = 0.6 oz pur e alcohol) Comments Unknown Sex and Gender Information Value Date Recorded Sex Assigned at Not on file Legal Sex Female 8:31 PM CDT Gender Identity Not on file Sexual Orientation Not on file Last Filed Vital Signs Vital Sign Reading Time Taken Comments Blood Pressure 102/67 05/11/2017 8:03 AM TRAINING TECHNICIAN Pulse 78 05/11/2017 6:34 AM TRAINING TECHNICIAN Temperature 36 C (96.8 F) 05/11/2017 8:03 AM TRAINING TECHNICIAN Respiratory Rate 18 05/11/2017 8:03 AM TRAINING TECHNICIAN Oxygen Saturation 100% 05/11/2017 8:03 AM TRAINING TECHNICIAN Inhaled Oxygen Concentration - - Weight 48.5 kg (107 lb) 05/02/2017 9:00 AM TRAINING TECHNICIAN Height 162.6 cm (5' 4 ) 05/02/2017 9:00 AM TRAINING TECHNICIAN Body Mass Index 18.37 05/02/2017 9:00 AM TRAINING TECHNICIAN Plan of Treatment Health Maintenance Due Date Last Done Comments Hepatitis C Virus (HCV) Screening 1965 TdaP Immunization 1965 Hepatitis B Immunization (1 of 3 - 19+ 3-dose series) 1984 Pap Smear 1986 Cervical Cancer Screening (CCS) 11/09/1995 HPV/Cotest 11/09/1995 Cologuard 11/09/2015 Immunochemical Fecal Occult Blood 11/09/2015 Mammogram 11/09/2015 Pneumococcal Immunization (5 0+ years) (1 of 1 - PCV) 11/09/2015 Zoster Immunization (1 of 2) 11/09/2015 Influenza Immunization (#1) 2023 SARS-COV-2 Immunization ( - season) 2023 Colonoscopy 05/12/2027 05/11/2017 Colorectal Cancer Screening 05/12/2027 Respiratory Syncytial Virus (RSV) Immunization (Adult) (1 - 1-dose 75+ series) 2040 05/11/2017 Meningococcal Immunization (ACWY) Aged Out No longer eligible based on patient's age to complete this topic Pneumococcal Immunization Combined Aged Out No longer eligible based on patient's age to complete this topic Rotavirus Immunization Aged Out No lo nger eligible based on patient's age to complete this topic Care Teams Library Clerical Assistant Relationship Specialty Start Date End Date Andrew Michael MD [address] [place], [place] [id number] PCP - General Family Medicine 2/8/17
[2024-07-05 11:48] VITALS: BP 99/66; PULSE 88; RESP 18; TEMP 36.2; O2SAT 96; BMI 20.7
[2024-07-05] MEDS: LACTATED RINGERS 1,000 ML 150 ML IV CONT (11:56)
--- NOTE | 2024-07-05 12:40 | WPDANESEPPF ---
Anes - Initial Pre Proc Eval Procedure: Operation Date: 07/05/24 13:00 Proposed Procedures p Colonoscopy - Saul Edward MD Date/Time: 07/05/24 12:40 Surgeon: Saul Edward MD Pre Op Diagnosis: hx of colon polyps Patient Data Age: 58 Gender: F Height: 1.65 m Weight: 56.4 kg Last Vital Signs Temp 36.2 C L 07/05/24 11:48 Pulse 88 07/05/24 11:48 Resp 18 07/05/24 11:48 BP 99/66 L 07/05/24 11:48 Pulse Ox 96 07/05/24 11:48 O2 Del Method Room Air 07/05/24 11:48 Allergies Allergy/AdvReac Type Severity Reaction Status Date / Time codeine Allergy Unknown Dyspnea / Verified 07/05/24 11:46 SOB morphine Allergy Unknown Dyspnea / Verified 07/05/24 11:46 SOB oxycodone Allergy Unknown Rash Verified 07/05/24 11:46 Home Medications ?Medication ?Instructions ?Recorded ?Confirmed ?Type hydroxyzine HCl 25 mg tablet 25 mg PO BID PRN anxiety #60 tabs 04/27/22 06/26/24 Rx albuterol sulfate 90 mcg/actuation 1 inh inhalation Q4H PRN Shortness 03/28/23 06/26/24 History aerosol inhaler (ProAir HFA) Of Breath Or Wheezing tizanidine 2 mg tablet 2 mg PO TID PRN muscle spasticity 12/05/23 06/26/24 Rx #20 tabs cholecalciferol (vitamin D3) 50 50 mcg PO DAILY #90 caps 02/21/24 07/05/24 Rx mcg (2,000 unit) capsule sertraline 100 mg tablet (Zoloft) 200 mg (2 x 100 mg) PO DAILY #180 05/09/24 07/05/24 Rx tabs bupropion HCl 100 mg tablet 100 mg PO BID #180 tabs 06/05/24 07/05/24 Rx dextroamphetamine-amphetamine 10 10 mg PO BID #60 tabs 06/14/24 07/05/24 Rx mg tablet (Adderall) lamotrigine 300 mg tablet,extended 300 mg PO DAILY #90 tabs 06/14/24 07/05/24 Rx release 24 hr ropinirole 0.5 mg tablet 0.5 mg PO QHS PRN .restless leg 06/14/24 06/26/24 Rx symptoms #90 tabs tapentadol 75 mg tablet (Nucynta) 75 mg PO Q6H PRN pain #120 tabs 06/14/24 06/26/24 Rx thyroid (pork) 120 mg tablet (BRAILLE OPERATOR 120 mg PO DAILY #90 tabs 06/14/24 07/05/24 Rx Thyroid) valacyclovir 1 gram tablet 2,000 mg (2 x 1 gram) PO Q12H PRN 06/14/24 06/26/24 Rx cold sores #4 tabs omeprazole 40 mg capsule,delayed 40 mg PO BID #60 caps 06/21/24 07/05/24 Rx release Patient hx anesthesia problems: none Family hx anesthesia problems: none Results Review: All pre-operative results and documents have been reviewed as part of the pre-operative evaluation. [facility] Past Medical History Medical History Adenomatous colon polyp Non-Hodgkin lymphoma Chronic, continuous use of opioids COPD (chronic obstructive pulmonary disease) Asthma Cigarette nicotine dependence Bilirubin in urine Pyuria CKD stage 3a, GFR 45-59 ml/min Acquired hypothyroidism Ataxia Cephalgia GERD (gastroesophageal reflux disease) Non Hodgkin's lymphoma Removal of subcu nodule posterior right shoulder with radiation and chemotherapy treatment. She underwent autologous stem cell transplant as well 2002. Arthralgia PTSD (post-traumatic stress disorder) Hearing loss Restless legs syndrome Cerebral atrophy Extremity numbness Herpes labialis Memory loss Poor concentration Colonoscopy planned Nausea Colon cancer screening Depression with anxiety Sleep disturbance Insomnia Arthritis of elbow, right Tremor Surgical History Surgical History History of sleeve gastrectomy 2013 History of bilateral tubal ligation History of gastric surgery Family History Family History Father DVT (deep venous thrombosis) Dementia Family history of diabetes mellitus in first degree relative Family history of coronary artery disease Hypertension Diabetes mellitus Mother Pancreatic cancer Sibling Dementia Breast cancer Ovarian cancer Congestive heart failure Diabetes mellitus Sibling , Edema Morbid obesity Sedentary lifestyle Social History Social History Social History: Lives at home with her and son. No alcohol or drug use. Smokes a pack a day for past 40 years. Full code. Nominates her to be the individual would make medical decisions for her if she is unable Smoking packs per day: 0.75 Smoking cigarettes per day: 15.0 Years smoked: 43 Smoking pack-years: 32.25 Smoking status: Current every day smoker Tobacco type: cigarettes and e-cigarettes/vaping Second hand tobacco smoke exposure: No Alcohol intake: former Alcohol use details: social Substance use: former Substance use type: marijuana Other substance usage details: as a young child Do You Feel Safe in your Home?: Yes Lack of Transportation: No Lack of Food: Never True Current Housing: I Have Housing Concerned About Future Housing: No Difficulty Paying Gas/Electric Bills: No Difficulty Paying for Meds: No Currently Unemployed: No Education: High School Diploma/GED Difficulty w/ Childcare or Family Care: No Living arrangements: with family Occupation/Education: occupation 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 Informed Consent: The patient's anesthetic plan and its attendant risks and benefits were discussed with the patient/family/POA. Questions were solicited and answers provided to the satisfaction of the patient/family/POA.
[2024-07-05 13:04] VITALS: BP 90/53; PULSE 72; RESP 26; O2SAT 98
[2024-07-05 13:14] VITALS: BP 97/52; PULSE 74; RESP 20; O2SAT 99
[2024-07-05 13:24] VITALS: BP 106/64; PULSE 75; RESP 18; O2SAT 100
== END 2024-07-05 13:39 | disposition home or self-care (01) ==
PROVIDERS: PCP Family Medicine; Referring Provider Internal Medicine Gastroenterology; Visit Provider Internal Medicine Gastroenterology
PROC: 0DJD8ZZ Inspection of Lower Intestinal Tract, Via Natural or Artificial Opening Endoscopic (ICD-10-PCS; CPT 45378; principal; 2024-07-05 13:00)
DX: Z12.11 Encounter for screening for malignant neoplasm of colon (principal); D12.2 Benign neoplasm of ascending colon; D12.4 Benign neoplasm of descending colon; K64.8 Other hemorrhoids; E03.9 Hypothyroidism, unspecified; K21.9 Gastro-esophageal reflux disease without esophagitis; G25.81 Restless legs syndrome; G47.00 Insomnia, unspecified; M19.021 Primary osteoarthritis, right elbow; J44.9 Chronic obstructive pulmonary disease, unspecified; N18.31 Chronic kidney disease, stage 3a; F43.10 Post-traumatic stress disorder, unspecified; F41.8 Other specified anxiety disorders; G47.9 Sleep disorder, unspecified; G31.9 Degenerative disease of nervous system, unspecified; F17.210 Nicotine dependence, cigarettes, uncomplicated; F17.290 Nicotine dependence, other tobacco product, uncomplicated; Z79.51 Long term (current) use of inhaled steroids; Z79.891 Long term (current) use of opiate analgesic; Z98.890 Other specified postprocedural states; Z98.84 Bariatric surgery status; Z98.51 Tubal ligation status; Z94.84 Stem cells transplant status; Z85.72 Personal history of non-Hodgkin lymphomas; Z92.3 Personal history of irradiation; Z92.21 Personal history of antineoplastic chemotherapy; Z80.0 Family history of malignant neoplasm of digestive organs; Z80.3 Family history of malignant neoplasm of breast; Z80.41 Family history of malignant neoplasm of ovary; Z82.49 Family history of ischemic heart disease and other diseases of the circulatory system
CPT/HCPCS: 45385; 88305; J2003; J2704; J7120